=== PATIENT | female | born 1925 | race Caucasian/White ===

== ENCOUNTER 2016-07-25 12:03 | Emergency (ER) | payer MEDICARE, BC ==
[2016-07-25] MEDS ORDERED: DILAUDID 1 MG/ML AMP ONE (13:20)
== END 2016-07-25 16:15 | disposition home or self-care (01) ==
LOC: ER 12:03
CPT/HCPCS: 36415 ×2; 70450 ×2; 71101; 72125 ×2; 80053 ×2; 82553 ×2; 83605 ×2; 84484 ×2; 85025 ×2; 85610 ×2; 85730 ×2; 87040 ×2; 93005 ×2; 99284; J1170